=== PATIENT | male | born 1990 | race Caucasian/White ===

== ENCOUNTER 2017-10-07 13:25 | Inpatient (IN) | payer BC ==
[~2017-10-07] VITALS: Ht 188 cm; Wt 98.9 kg
--- NOTE | 2017-10-07 13:51 | PHYS DOC ---
Adult General Chief Complaint Chief Complaint: anxiety; wants rehap HPI HPI Patient is a 27-year-old male who presents with complaint of wanting rehabilitation. Patient indicates that he was clean from heroin for 40 days and he has been having a lot of anxiety because his ex-girlfriend has been messing with him. Patient denies any suicidal ideations but states that he has been having homicidal ideations regarding his ex-girlfriend, stating that he has been thinking about ending her. He denies any chest pain or shortness breath. He does complain of feeling very thirsty and states that he is probably not been drinking enough fluids recently. Review of Systems Review of Systems Constitutional: Denies fever or chills [] Respiratory: Denies cough or shortness of breath [] Cardiovascular: Denies chest pain[] GI: Denies abdominal pain, nausea, vomiting or diarrhea [] Musculoskeletal: Denies back pain or joint pain [] Psychiatric: Admits to homicidal ideations. A full 10 point review of systems has been reviewed and is otherwise negative. Current Medications Current Medications Current Medications Medications (Trade) Dose Ordered Sig/Yoshi Start Time Stop Time Status Last Admin Dose Admin Lorazepam (Ativan) 1 mg 1X ONCE 10/07/17 18:00 10/07/17 18:01 Sodium Chloride 1,000 ml @ 1,000 mls/hr Q1H 10/07/17 14:00 10/07/17 14:59 DC 10/07/17 15:03 1,000 MLS/HR Allergies Allergies Allergies Coded Allergies Type Severity Reaction Last Updated Verified tramadol Allergy Severe "TRIGGERS SEIZURES" 10/07/17 Yes Physical Exam Physical Exam Constitutional: Well developed, well nourished, no acute distress, non-toxic appearance. [] HENT: Normocephalic, atraumatic, bilateral external ears normal, oral mucosa is dry, no oral exudates, nose normal. [] Eyes: PERRLA, EOMI, conjunctiva normal, no discharge. [] Neck: Normal range of motion, no tenderness, supple, no stridor. [] Cardiovascular:Heart rate regular rhythm [] Lungs & Thorax: Bilateral breath sounds clear to auscultation [] Abdomen: Bowel sounds normal, soft, no tenderness. [] Skin: Warm, dry, no erythema, no rash. [] Extremities: No tenderness, no cyanosis, no clubbing, ROM intact, no edema. [] Neurologic: Alert and oriented X 3, normal motor function, normal sensory function, no focal deficits noted. [] Current Patient Data Vital Signs Vital Signs Date Time Temp Pulse Resp B/P (MAP) Pulse Ox O2 Delivery O2 Flow Rate FiO2 10/07/17 16:57 88 18 135/90 (105) 95 Room Air 10/07/17 13:30 98.7 98.7 Lab Values Laboratory Tests Test 10/07/17 13:50 10/07/17 14:24 White Blood Count 5.4 x10^3/uL (4.0-11.0) Red Blood Count 4.13 x10^6/uL (4.30-5.70) L Hemoglobin 13.1 g/dL (13.0-17.5) Hematocrit 37.2 % (39.0-53.0) L Mean Corpuscular Volume 90 fL (79-100) Mean Corpuscular Hemoglobin 32 pg (25-35) Mean Corpuscular Hemoglobin Concent 35 g/dL (31-37) Red Cell Distribution Width 12.9 % (11.5-14.5) Platelet Count 222 x10^3/uL (140-400) Neutrophils (%) (Auto) 66 % (31-73) Lymphocytes (%) (Auto) 15 % (24-48) L Monocytes (%) (Auto) 18 % (0-9) H Eosinophils (%) (Auto) 1 % (0-3) Basophils (%) (Auto) 1 % (0-3) Neutrophils # (Auto) 3.6 x10^3uL (1.8-7.7) Lymphocytes # (Auto) 0.8 x10^3/uL (1.0-4.8) L Monocytes # (Auto) 0.9 x10^3/uL (0.0-1.1) Eosinophils # (Auto) 0.0 x10^3/uL (0.0-0.7) Basophils # (Auto) 0.0 x10^3/uL (0.0-0.2) Sodium Level 139 mmol/L (136-145) Potassium Level 3.7 mmol/L (3.5-5.1) Chloride Level 104 mmol/L (98-107) Carbon Dioxide Level 28 mmol/L (21-32) Anion Gap 7 (6-14) Blood Urea Nitrogen 22 mg/dL (8-26) Creatinine 1.0 mg/dL (0.7-1.3) Estimated GFR (Cockcroft-Gault) 89.0 Glucose Level 76 mg/dL (70-99) Calcium Level 8.7 mg/dL (8.5-10.1) Magnesium Level 2.0 mg/dL (1.8-2.4) Total Bilirubin 0.5 mg/dL (0.2-1.0) Direct Bilirubin 0.2 mg/dL (0.0-0.2) Aspartate Amino Transferase (AST) 57 U/L (15-37) H Alanine Aminotransferase (ALT) 81 U/L (16-63) H Alkaline Phosphatase 59 U/L (46-116) Total Protein 7.5 g/dL (6.4-8.2) Albumin 3.7 g/dL (3.4-5.0) Ethyl Alcohol Level < 10 mg/dL (0-10) Urine Collection Type Unknown Urine Color Yellow Urine Clarity Clear Urine pH 5.5 Urine Specific [place] 1.025 Urine Protein Negative mg/dL (NEG-TRACE) Urine Glucose (UA) Negative mg/dL (NEG) Urine Ketones (Stick) Negative mg/dL (NEG) Urine Blood Negative (NEG) Urine Nitrite Negative (NEG) Urine Bilirubin Negative (NEG) Urine Urobilinogen Dipstick 0.2 mg/dL (0.2 mg/dL) Urine Leukocyte Esterase Negative (NEG) Urine RBC 1-2 /HPF (0-2) Urine WBC 1-4 /HPF (0-4) Urine Squamous Epithelial Cells Few /LPF Urine Bacteria 0 /HPF (0-FEW) Urine Mucus Mod /LPF Urine Opiates Screen Neg (NEG) Urine Methadone Screen Neg (NEG) Urine Barbiturates Neg (NEG) Urine Phencyclidine Screen Neg (NEG) Urine Amphetamine/Methamphetamine Pos (NEG) Urine Benzodiazepines Screen Pos (NEG) Urine Cocaine Screen Neg (NEG) Urine Cannabinoids Screen Neg (NEG) Urine Ethyl Alcohol Neg (NEG) Laboratory Tests 10/07/17 13:50 Laboratory Tests 10/07/17 13:50 EKG EKG [] Radiology/Procedures Radiology/Procedures [] Course & Med Decision Making Course & Med Decision Making Pertinent Labs and Imaging studies reviewed. (See chart for details) [] Dragon Disclaimer Dragon Disclaimer This electronic medical record was generated, in whole or in part, using a voice recognition dictation system. Departure Departure Impression: Primary Impression: Methamphetamine abuse Additional Impression: Homicidal ideation Disposition: ADMITTED INPATIENT Admitting Physician: Shoaib Anne Condition: STABLE Problem Qualifiers JESUSITA CALDERA Jr. DO Oct 07, 2017 13:51
[2017-10-07] MEDS ORDERED: IV NORMAL SALINE 1000ML BAG 1,000 ML IV SCH (14:00)
[2017-10-07 14:01] LABS: BASO % 1 % (0-3); EOS % 1 % (0-3); HEMATOCRIT 37.2 % (39.0-53.0); HEMOGLOBIN 13.1 g/dL (13.0-17.5); LYMPH # 0.8 x10^3/uL (1.0-4.8); LYMPH % 15 % (24-48); MEAN CORPUSCULAR HEMOGLOBIN 32 pg (25-35); MEAN CORPUSCULAR HGB CONC 35 g/dL (31-37); MEAN CORPUSCULAR VOLUME 90 fL (79-100); MONO # 0.9 x10^3/uL (0.0-1.1); MONO % 18 % (0-9); NEUT # 3.6 x10^3uL (1.8-7.7); NEUT % 66 % (31-73); PLATELET COUNT 222 x10^3/uL (140-400); RED BLOOD COUNT 4.13 x10^6/uL (4.30-5.70); RED CELL DISTRIBUTION WIDTH 12.9 % (11.5-14.5); WHITE BLOOD COUNT 5.4 x10^3/uL (4.0-11.0)
[2017-10-07 14:15] LABS: CALCIUM 8.7 mg/dL (8.5-10.1); POTASSIUM 3.7 mmol/L (3.5-5.1)
[2017-10-07 14:22] LABS: ALBUMIN 3.7 g/dL (3.4-5.0); DIRECT BILIRUBIN 0.2 mg/dL (0.0-0.2); TOTAL BILIRUBIN 0.5 mg/dL (0.2-1.0); TOTAL PROTEIN 7.5 g/dL (6.4-8.2)
[2017-10-07 14:39] LABS: BILIRUBIN,URINE NEGATIVE (NEG); CLARITY,URINE CLEAR; COLOR,URINE YELLOW; NITRITE,URINE NEGATIVE (NEG); PH,URINE 5.5; PROTEIN,URINE NEGATIVE (NEG-TRACE); UROBILINOGEN,URINE 0.2 mg/dL (0.2 mg/dL)
[2017-10-07 14:45] LABS: BARBITURATES NEG (NEG); BENZODIAZEPINES POS (NEG); CANNABINOIDS NEG (NEG); COCAINE NEG (NEG); METHADONE NEG (NEG); OPIATES NEG (NEG); PHENCYCLIDINE NEG (NEG)
[2017-10-07 14:47] LABS: AMPHETAMINE/METHAMPHETAMINE POS (NEG)
[2017-10-07 15:12] LABS: BACTERIA,URINE 0 /HPF (0-FEW); SQUAMOUS EPITHELIAL CELL,UR FEW /LPF
[2017-10-07] MEDS ORDERED: LORazepam 1 MG TABLET PO ONE ×2 (15:30→18:00)
[2017-10-07] MEDS ORDERED: LIDO:MAALOX 1:1 20 ML SINGLE DOSE. SWSW ONE (18:30)
--- NOTE | 2017-10-07 18:46 | PDOC1 ---
History and Physical Date of Admission Date of Admission DATE: 10/07/17 TIME: 18:46 Identification/Chief Complaint Chief Complaint CC presents with complaint of wanting rehabilitation. indicates that he was clean from heroin for 40 day Patient denies any suicidal ideations but states that he has been having homicidal ideations regarding his ex-girlfriend, HAS Been to [facility] in [facility] and [facility] Past Medical History GI: No pertinent hx Hepatobiliary: No pertinent hx Psych: Anxiety, Addictions Renal/: No pertinent hx Past Surgical History Past Surgical History: No pertinent history Family History Family History: Alcohol Abuse, High Cholestrol Family History: Parent Social History Smoke: No ALCOHOL: occassional Drugs: Marijuana, Crystal meth Current Problem List Problem List Problems Medical Problems: (1) Homicidal ideation Status: Acute (2) Methamphetamine abuse Status: Acute Current Medications Current Medications Current Medications Sodium Chloride 1,000 ml @ 1,000 mls/hr Q1H IV Last administered on 10/07/17at 15:03; Start 10/07/17 at 14:00; Stop 10/07/17 at 14:59; Status DC Lorazepam (Ativan) 1 mg 1X ONCE PO Last administered on 10/07/17at 15:11; Start 10/07/17 at 15:30; Stop 10/07/17 at 15:31; Status DC Lorazepam (Ativan) 1 mg 1X ONCE PO Last administered on 10/07/17at 18:21; Start 10/07/17 at 18:00; Stop 10/07/17 at 18:01; Status DC Multi-Ingredient Mouthwash/Gargle (Gi Cocktail) 20 ml 1X ONCE SWSW Last administered on 10/07/17at 18:24; Start 10/07/17 at 18:30; Stop 10/07/17 at 18:31 ; Status DC Allergies Allergies: Coded Allergies: tramadol (Verified Allergy, Severe, "TRIGGERS SEIZURES", 10/07/17) ROS Review of System Review of Systems Review of Systems Constitutional: Denies fever or chills [] Respiratory: Denies cough or shortness of breath [] Cardiovascular: Denies chest pain[] GI: Denies abdominal pain, nausea, vomiting or diarrhea [] Musculoskeletal: Denies back pain or joint pain [] Psychiatric: Admits to homicidal ideations. 14 point review of systems has been reviewed and is otherwise negative. General: No: Chills, Night Sweats, Fatigue, Malaise, Appetite, Other PSYCHOLOGICAL ROS: YES: Anxiety Gastrointestinal: No Nausea, No Vomiting, No Abdominal Pain, No Diarrhea, No Constipation, No Melena, No Hematochezia, No Other Neurological: Yes Confusion Skin: Yes Dry Skin Physical Exam Physical Exam Physical Exam Constitutional: Well developed, well nourished, no acute distress, non-toxic appearance. [] HENT: Normocephalic, atraumatic, bilateral external ears normal, oral mucosa is dry, no oral exudates, nose normal. [] Eyes: PERRLA, EOMI, conjunctiva normal, no discharge. [] Neck: Normal range of motion, no tenderness, supple, no stridor. [] Cardiovascular:Heart rate regular rhythm [] Lungs & Thorax: Bilateral breath sounds clear to auscultation [] Abdomen: Bowel sounds normal, soft, no tenderness. [] Skin: Warm, dry, no erythema, no rash. [] Extremities: No tenderness, no cyanosis, no clubbing, ROM intact, no edema. [] Neurologic: Alert and oriented X 3, seems under influence of a substance , normal motor function, normal sensory function, no focal deficits noted. [] General: Oriented X3, Cooperative, mild distress HEENT: PERRLA, EOMI, Mucous membr. moist/pink Lungs: Clear to auscultation, Normal air movement Heart: S1S2 Breasts: Not examined Abdomen: Soft Extremities: No cyanosis Neuro: Cranial nerves 3-12 NL Vitals Vitals Vital Signs Date Time Temp Pulse Resp B/P (MAP) Pulse Ox O2 Delivery O2 Flow Rate FiO2 10/07/17 16:57 88 18 135/90 (105) 95 Room Air 10/07/17 13:30 98.7 98.7 Labs Labs Laboratory Tests Test 10/07/17 13:50 10/07/17 14:24 White Blood Count 5.4 x10^3/uL (4.0-11.0) Red Blood Count 4.13 x10^6/uL (4.30-5.70) Hemoglobin 13.1 g/dL (13.0-17.5) Hematocrit 37.2 % (39.0-53.0) Mean Corpuscular Volume 90 fL (79-100) Mean Corpuscular Hemoglobin 32 pg (25-35) Mean Corpuscular Hemoglobin Concent 35 g/dL (31-37) Red Cell Distribution Width 12.9 % (11.5-14.5) Platelet Count 222 x10^3/uL (140-400) Neutrophils (%) (Auto) 66 % (31-73) Lymphocytes (%) (Auto) 15 % (24-48) Monocytes (%) (Auto) 18 % (0-9) Eosinophils (%) (Auto) 1 % (0-3) Basophils (%) (Auto) 1 % (0-3) Neutrophils # (Auto) 3.6 x10^3uL (1.8-7.7) Lymphocytes # (Auto) 0.8 x10^3/uL (1.0-4.8) Monocytes # (Auto) 0.9 x10^3/uL (0.0-1.1) Eosinophils # (Auto) 0.0 x10^3/uL (0.0-0.7) Basophils # (Auto) 0.0 x10^3/uL (0.0-0.2) Sodium Level 139 mmol/L (136-145) Potassium Level 3.7 mmol/L (3.5-5.1) Chloride Level 104 mmol/L (98-107) Carbon Dioxide Level 28 mmol/L (21-32) Anion Gap 7 (6-14) Blood Urea Nitrogen 22 mg/dL (8-26) Creatinine 1.0 mg/dL (0.7-1.3) Estimated GFR (Cockcroft-Gault) 89.0 Glucose Level 76 mg/dL (70-99) Calcium Level 8.7 mg/dL (8.5-10.1) Magnesium Level 2.0 mg/dL (1.8-2.4) Total Bilirubin 0.5 mg/dL (0.2-1.0) Direct Bilirubin 0.2 mg/dL (0.0-0.2) Aspartate Amino Transf (AST/SGOT) 57 U/L (15-37) Alanine Aminotransferase (ALT/SGPT) 81 U/L (16-63) Alkaline Phosphatase 59 U/L (46-116) Total Protein 7.5 g/dL (6.4-8.2) Albumin 3.7 g/dL (3.4-5.0) Ethyl Alcohol Level < 10 mg/dL (0-10) Urine Collection Type Unknown Urine Color Yellow Urine Clarity Clear Urine pH 5.5 Urine Specific [place] 1.025 Urine Protein Negative mg/dL (NEG-TRACE) Urine Glucose (UA) Negative mg/dL (NEG) Urine Ketones (Stick) Negative mg/dL (NEG) Urine Blood Negative (NEG) Urine Nitrite Negative (NEG) Urine Bilirubin Negative (NEG) Urine Urobilinogen Dipstick 0.2 mg/dL (0.2 mg/dL) Urine Leukocyte Esterase Negative (NEG) Urine RBC 1-2 /HPF (0-2) Urine WBC 1-4 /HPF (0-4) Urine Squamous Epithelial Cells Few /LPF Urine Bacteria 0 /HPF (0-FEW) Urine Mucus Mod /LPF Urine Opiates Screen Neg (NEG) Urine Methadone Screen Neg (NEG) Urine Barbiturates Neg (NEG) Urine Phencyclidine Screen Neg (NEG) Urine Amphetamine/Methamphetamine Pos (NEG) Urine Benzodiazepines Screen Pos (NEG) Urine Cocaine Screen Neg (NEG) Urine Cannabinoids Screen Neg (NEG) Urine Ethyl Alcohol Neg (NEG) Laboratory Tests Test 10/07/17 13:50 10/07/17 14:24 White Blood Count 5.4 x10^3/uL (4.0-11.0) Red Blood Count 4.13 x10^6/uL (4.30-5.70) Hemoglobin 13.1 g/dL (13.0-17.5) Hematocrit 37.2 % (39.0-53.0) Mean Corpuscular Volume 90 fL (79-100) Mean Corpuscular Hemoglobin 32 pg (25-35) Mean Corpuscular Hemoglobin Concent 35 g/dL (31-37) Red Cell Distribution Width 12.9 % (11.5-14.5) Platelet Count 222 x10^3/uL (140-400) Neutrophils (%) (Auto) 66 % (31-73) Lymphocytes (%) (Auto) 15 % (24-48) Monocytes (%) (Auto) 18 % (0-9) Eosinophils (%) (Auto) 1 % (0-3) Basophils (%) (Auto) 1 % (0-3) Neutrophils # (Auto) 3.6 x10^3uL (1.8-7.7) Lymphocytes # (Auto) 0.8 x10^3/uL (1.0-4.8) Monocytes # (Auto) 0.9 x10^3/uL (0.0-1.1) Eosinophils # (Auto) 0.0 x10^3/uL (0.0-0.7) Basophils # (Auto) 0.0 x10^3/uL (0.0-0.2) Sodium Level 139 mmol/L (136-145) Potassium Level 3.7 mmol/L (3.5-5.1) Chloride Level 104 mmol/L (98-107) Carbon Dioxide Level 28 mmol/L (21-32) Anion Gap 7 (6-14) Blood Urea Nitrogen 22 mg/dL (8-26) Creatinine 1.0 mg/dL (0.7-1.3) Estimated GFR (Cockcroft-Gault) 89.0 Glucose Level 76 mg/dL (70-99) Calcium Level 8.7 mg/dL (8.5-10.1) Magnesium Level 2.0 mg/dL (1.8-2.4) Total Bilirubin 0.5 mg/dL (0.2-1.0) Direct Bilirubin 0.2 mg/dL (0.0-0.2) Aspartate Amino Transf (AST/SGOT) 57 U/L (15-37) Alanine Aminotransferase (ALT/SGPT) 81 U/L (16-63) Alkaline Phosphatase 59 U/L (46-116) Total Protein 7.5 g/dL (6.4-8.2) Albumin 3.7 g/dL (3.4-5.0) Ethyl Alcohol Level < 10 mg/dL (0-10) Urine Collection Type Unknown Urine Color Yellow Urine Clarity Clear Urine pH 5.5 Urine Specific [place] 1.025 Urine Protein Negative mg/dL (NEG-TRACE) Urine Glucose (UA) Negative mg/dL (NEG) Urine Ketones (Stick) Negative mg/dL (NEG) Urine Blood Negative (NEG) Urine Nitrite Negative (NEG) Urine Bilirubin Negative (NEG) Urine Urobilinogen Dipstick 0.2 mg/dL (0.2 mg/dL) Urine Leukocyte Esterase Negative (NEG) Urine RBC 1-2 /HPF (0-2) Urine WBC 1-4 /HPF (0-4) Urine Squamous Epithelial Cells Few /LPF Urine Bacteria 0 /HPF (0-FEW) Urine Mucus Mod /LPF Urine Opiates Screen Neg (NEG) Urine Methadone Screen Neg (NEG) Urine Barbiturates Neg (NEG) Urine Phencyclidine Screen Neg (NEG) Urine Amphetamine/Methamphetamine Pos (NEG) Urine Benzodiazepines Screen Pos (NEG) Urine Cocaine Screen Neg (NEG) Urine Cannabinoids Screen Neg (NEG) Urine Ethyl Alcohol Neg (NEG) VTE Prophylaxis Ordered VTE Prophylaxis Devices: Yes VTE Pharmacological Prophylaxi: Yes Assessment/Plan Assessment/Plan impression 1. polysubstance abuse 2. Meth abuse 3 Toxic encephalopathy 4. Risk to self and others 5. homicidal ideations plan 1. ADMIT 2. Withdrawal precautions 3. sitter 4. 48 hr hold 5. rehab needed 6. iv ativan 1-2 mg q 6 hrs prn severe anxiety 7. psych hold, consult 8. lovenox 40mg sq dvt prophylaxis 9. banana bag LUCRETIA PALMA MD Oct 07, 2017 18:46
[2017-10-07] MEDS ORDERED: MULTIVIT INFUSN,ADULT 4,VIT K 10 ML, THIAMINE 100 MG, FOLIC ACID 1 MG in IV NORMAL SALI... IV ONE (19:00)
[2017-10-07] MEDS ORDERED: ENOXAPARIN 40 MG/0.4 ML SYRINGE. SQ ONE (19:00)
[2017-10-07] MEDS ORDERED: HALOPERIDOL LACTATE 5 MG/ML VIAL. ONE (19:52)
[2017-10-07] MEDS ORDERED: OLANZapine IM 10 MG VIAL. IM ONE (20:15)
[2017-10-07] MEDS ORDERED: HALOPERIDOL LACTATE 5 MG/ML VIAL. IM ONE (20:15)
[2017-10-07] MEDS ORDERED: ZIPRASIDONE IM 20 MG VIAL. IM ONE (20:30)
[2017-10-07] MEDS ORDERED: ZIPRASIDONE IM 20 MG VIAL. IM PRN ×2 (22:15→23:00)
[2017-10-07] MEDS ORDERED: MIDAZOLAM HCL/PF 5 MG/5 ML VIAL. IM PRN ×2 (22:30→23:00)
[2017-10-07] MEDS ORDERED: ZOLPIDEM 5 MG TABLET. PO PRN (22:45)
[2017-10-08 07:00] VITALS: BP 115/40
[2017-10-08] MEDS ORDERED: GABA800T2 PO (10:01)
[2017-10-08] MEDS ORDERED: CLON2TAB9 PO (10:01)
[2017-10-08] MEDS ORDERED: BUPR1FIL5 SL (10:02)
--- NOTE | 2017-10-08 10:33 | PDOC ---
PROGRESS NOTES History of Present Illness History of Present Illness Assessment/Plan Assessment/Plan impression 1. polysubstance abuse 2. Meth abuse 3 Toxic encephalopathy 4. Risk to self and others 5. homicidal ideations plan 1. ADMIT 2. Withdrawal precautions 3. sitter 4. 48 hr hold 5. rehab needed, refused 6. iv ativan 1-2 mg q 6 hrs prn severe anxiety 7. psych hold, consult 8. lovenox 40mg sq dvt prophylaxis 9. banana bag left ama today d/c planning 38 min Vitals Vitals Vital Signs Date Time Temp Pulse Resp B/P (MAP) Pulse Ox O2 Delivery O2 Flow Rate FiO2 10/08/17 08:00 Room Air 10/08/17 07:00 101.0 102 18 115/40 (65) 92 101.0 Physical Exam General: Oriented X3, Cooperative, mild distress Abdomen: Soft Extremities: No cyanosis Labs LABS Laboratory Tests Test 10/07/17 13:50 10/07/17 14:24 White Blood Count 5.4 x10^3/uL (4.0-11.0) Red Blood Count 4.13 x10^6/uL (4.30-5.70) Hemoglobin 13.1 g/dL (13.0-17.5) Hematocrit 37.2 % (39.0-53.0) Mean Corpuscular Volume 90 fL (79-100) Mean Corpuscular Hemoglobin 32 pg (25-35) Mean Corpuscular Hemoglobin Concent 35 g/dL (31-37) Red Cell Distribution Width 12.9 % (11.5-14.5) Platelet Count 222 x10^3/uL (140-400) Neutrophils (%) (Auto) 66 % (31-73) Lymphocytes (%) (Auto) 15 % (24-48) Monocytes (%) (Auto) 18 % (0-9) Eosinophils (%) (Auto) 1 % (0-3) Basophils (%) (Auto) 1 % (0-3) Neutrophils # (Auto) 3.6 x10^3uL (1.8-7.7) Lymphocytes # (Auto) 0.8 x10^3/uL (1.0-4.8) Monocytes # (Auto) 0.9 x10^3/uL (0.0-1.1) Eosinophils # (Auto) 0.0 x10^3/uL (0.0-0.7) Basophils # (Auto) 0.0 x10^3/uL (0.0-0.2) Sodium Level 139 mmol/L (136-145) Potassium Level 3.7 mmol/L (3.5-5.1) Chloride Level 104 mmol/L (98-107) Carbon Dioxide Level 28 mmol/L (21-32) Anion Gap 7 (6-14) Blood Urea Nitrogen 22 mg/dL (8-26) Creatinine 1.0 mg/dL (0.7-1.3) Estimated GFR (Cockcroft-Gault) 89.0 Glucose Level 76 mg/dL (70-99) Calcium Level 8.7 mg/dL (8.5-10.1) Magnesium Level 2.0 mg/dL (1.8-2.4) Total Bilirubin 0.5 mg/dL (0.2-1.0) Direct Bilirubin 0.2 mg/dL (0.0-0.2) Aspartate Amino Transf (AST/SGOT) 57 U/L (15-37) Alanine Aminotransferase (ALT/SGPT) 81 U/L (16-63) Alkaline Phosphatase 59 U/L (46-116) Total Protein 7.5 g/dL (6.4-8.2) Albumin 3.7 g/dL (3.4-5.0) Ethyl Alcohol Level < 10 mg/dL (0-10) Urine Collection Type Unknown Urine Color Yellow Urine Clarity Clear Urine pH 5.5 Urine Specific [place] 1.025 Urine Protein Negative mg/dL (NEG-TRACE) Urine Glucose (UA) Negative mg/dL (NEG) Urine Ketones (Stick) Negative mg/dL (NEG) Urine Blood Negative (NEG) Urine Nitrite Negative (NEG) Urine Bilirubin Negative (NEG) Urine Urobilinogen Dipstick 0.2 mg/dL (0.2 mg/dL) Urine Leukocyte Esterase Negative (NEG) Urine RBC 1-2 /HPF (0-2) Urine WBC 1-4 /HPF (0-4) Urine Squamous Epithelial Cells Few /LPF Urine Bacteria 0 /HPF (0-FEW) Urine Mucus Mod /LPF Urine Opiates Screen Neg (NEG) Urine Methadone Screen Neg (NEG) Urine Barbiturates Neg (NEG) Urine Phencyclidine Screen Neg (NEG) Urine Amphetamine/Methamphetamine Pos (NEG) Urine Benzodiazepines Screen Pos (NEG) Urine Cocaine Screen Neg (NEG) Urine Cannabinoids Screen Neg (NEG) Urine Ethyl Alcohol Neg (NEG) Assessment and Plan Assessmemt and Plan Problems Medical Problems: (1) Homicidal ideation Status: Acute (2) Methamphetamine abuse Status: Acute Comment Review of Relevant I have reviewed the following items ambar (where applicable) has been applied. Labs Laboratory Tests Test 10/07/17 13:50 10/07/17 14:24 White Blood Count 5.4 x10^3/uL (4.0-11.0) Red Blood Count 4.13 x10^6/uL (4.30-5.70) Hemoglobin 13.1 g/dL (13.0-17.5) Hematocrit 37.2 % (39.0-53.0) Mean Corpuscular Volume 90 fL (79-100) Mean Corpuscular Hemoglobin 32 pg (25-35) Mean Corpuscular Hemoglobin Concent 35 g/dL (31-37) Red Cell Distribution Width 12.9 % (11.5-14.5) Platelet Count 222 x10^3/uL (140-400) Neutrophils (%) (Auto) 66 % (31-73) Lymphocytes (%) (Auto) 15 % (24-48) Monocytes (%) (Auto) 18 % (0-9) Eosinophils (%) (Auto) 1 % (0-3) Basophils (%) (Auto) 1 % (0-3) Neutrophils # (Auto) 3.6 x10^3uL (1.8-7.7) Lymphocytes # (Auto) 0.8 x10^3/uL (1.0-4.8) Monocytes # (Auto) 0.9 x10^3/uL (0.0-1.1) Eosinophils # (Auto) 0.0 x10^3/uL (0.0-0.7) Basophils # (Auto) 0.0 x10^3/uL (0.0-0.2) Sodium Level 139 mmol/L (136-145) Potassium Level 3.7 mmol/L (3.5-5.1) Chloride Level 104 mmol/L (98-107) Carbon Dioxide Level 28 mmol/L (21-32) Anion Gap 7 (6-14) Blood Urea Nitrogen 22 mg/dL (8-26) Creatinine 1.0 mg/dL (0.7-1.3) Estimated GFR (Cockcroft-Gault) 89.0 Glucose Level 76 mg/dL (70-99) Calcium Level 8.7 mg/dL (8.5-10.1) Magnesium Level 2.0 mg/dL (1.8-2.4) Total Bilirubin 0.5 mg/dL (0.2-1.0) Direct Bilirubin 0.2 mg/dL (0.0-0.2) Aspartate Amino Transf (AST/SGOT) 57 U/L (15-37) Alanine Aminotransferase (ALT/SGPT) 81 U/L (16-63) Alkaline Phosphatase 59 U/L (46-116) Total Protein 7.5 g/dL (6.4-8.2) Albumin 3.7 g/dL (3.4-5.0) Ethyl Alcohol Level < 10 mg/dL (0-10) Urine Collection Type Unknown Urine Color Yellow Urine Clarity Clear Urine pH 5.5 Urine Specific [place] 1.025 Urine Protein Negative mg/dL (NEG-TRACE) Urine Glucose (UA) Negative mg/dL (NEG) Urine Ketones (Stick) Negative mg/dL (NEG) Urine Blood Negative (NEG) Urine Nitrite Negative (NEG) Urine Bilirubin Negative (NEG) Urine Urobilinogen Dipstick 0.2 mg/dL (0.2 mg/dL) Urine Leukocyte Esterase Negative (NEG) Urine RBC 1-2 /HPF (0-2) Urine WBC 1-4 /HPF (0-4) Urine Squamous Epithelial Cells Few /LPF Urine Bacteria 0 /HPF (0-FEW) Urine Mucus Mod /LPF Urine Opiates Screen Neg (NEG) Urine Methadone Screen Neg (NEG) Urine Barbiturates Neg (NEG) Urine Phencyclidine Screen Neg (NEG) Urine Amphetamine/Methamphetamine Pos (NEG) Urine Benzodiazepines Screen Pos (NEG) Urine Cocaine Screen Neg (NEG) Urine Cannabinoids Screen Neg (NEG) Urine Ethyl Alcohol Neg (NEG) Laboratory Tests Test 10/07/17 13:50 10/07/17 14:24 White Blood Count 5.4 x10^3/uL (4.0-11.0) Red Blood Count 4.13 x10^6/uL (4.30-5.70) Hemoglobin 13.1 g/dL (13.0-17.5) Hematocrit 37.2 % (39.0-53.0) Mean Corpuscular Volume 90 fL (79-100) Mean Corpuscular Hemoglobin 32 pg (25-35) Mean Corpuscular Hemoglobin Concent 35 g/dL (31-37) Red Cell Distribution Width 12.9 % (11.5-14.5) Platelet Count 222 x10^3/uL (140-400) Neutrophils (%) (Auto) 66 % (31-73) Lymphocytes (%) (Auto) 15 % (24-48) Monocytes (%) (Auto) 18 % (0-9) Eosinophils (%) (Auto) 1 % (0-3) Basophils (%) (Auto) 1 % (0-3) Neutrophils # (Auto) 3.6 x10^3uL (1.8-7.7) Lymphocytes # (Auto) 0.8 x10^3/uL (1.0-4.8) Monocytes # (Auto) 0.9 x10^3/uL (0.0-1.1) Eosinophils # (Auto) 0.0 x10^3/uL (0.0-0.7) Basophils # (Auto) 0.0 x10^3/uL (0.0-0.2) Sodium Level 139 mmol/L (136-145) Potassium Level 3.7 mmol/L (3.5-5.1) Chloride Level 104 mmol/L (98-107) Carbon Dioxide Level 28 mmol/L (21-32) Anion Gap 7 (6-14) Blood Urea Nitrogen 22 mg/dL (8-26) Creatinine 1.0 mg/dL (0.7-1.3) Estimated GFR (Cockcroft-Gault) 89.0 Glucose Level 76 mg/dL (70-99) Calcium Level 8.7 mg/dL (8.5-10.1) Magnesium Level 2.0 mg/dL (1.8-2.4) Total Bilirubin 0.5 mg/dL (0.2-1.0) Direct Bilirubin 0.2 mg/dL (0.0-0.2) Aspartate Amino Transf (AST/SGOT) 57 U/L (15-37) Alanine Aminotransferase (ALT/SGPT) 81 U/L (16-63) Alkaline Phosphatase 59 U/L (46-116) Total Protein 7.5 g/dL (6.4-8.2) Albumin 3.7 g/dL (3.4-5.0) Ethyl Alcohol Level < 10 mg/dL (0-10) Urine Collection Type Unknown Urine Color Yellow Urine Clarity Clear Urine pH 5.5 Urine Specific [place] 1.025 Urine Protein Negative mg/dL (NEG-TRACE) Urine Glucose (UA) Negative mg/dL (NEG) Urine Ketones (Stick) Negative mg/dL (NEG) Urine Blood Negative (NEG) Urine Nitrite Negative (NEG) Urine Bilirubin Negative (NEG) Urine Urobilinogen Dipstick 0.2 mg/dL (0.2 mg/dL) Urine Leukocyte Esterase Negative (NEG) Urine RBC 1-2 /HPF (0-2) Urine WBC 1-4 /HPF (0-4) Urine Squamous Epithelial Cells Few /LPF Urine Bacteria 0 /HPF (0-FEW) Urine Mucus Mod /LPF Urine Opiates Screen Neg (NEG) Urine Methadone Screen Neg (NEG) Urine Barbiturates Neg (NEG) Urine Phencyclidine Screen Neg (NEG) Urine Amphetamine/Methamphetamine Pos (NEG) Urine Benzodiazepines Screen Pos (NEG) Urine Cocaine Screen Neg (NEG) Urine Cannabinoids Screen Neg (NEG) Urine Ethyl Alcohol Neg (NEG) Medications Current Medications Sodium Chloride 1,000 ml @ 1,000 mls/hr Q1H IV Last administered on 10/07/17at 15:03; Start 10/07/17 at 14:00; Stop 10/07/17 at 14:59; Status DC Lorazepam (Ativan) 1 mg 1X ONCE PO Last administered on 10/07/17at 15:11; Start 10/07/17 at 15:30; Stop 10/07/17 at 15:31; Status DC Lorazepam (Ativan) 1 mg 1X ONCE PO Last administered on 10/07/17at 18:21; Start 10/07/17 at 18:00; Stop 10/07/17 at 18:01; Status DC Multi-Ingredient Mouthwash/Gargle (Gi Cocktail) 20 ml 1X ONCE SWSW Last administered on 10/07/17at 18:24; Start 10/07/17 at 18:30; Stop 10/07/17 at 18:31 ; Status DC Lorazepam (Ativan) 2 mg PRN Q4HRS PRN IV ANXIETY / AGITATION Last administered on 10/08/17at 07:09; Start 10/07/17 at 19:00 Enoxaparin Sodium (Lovenox 40mg Syringe) 40 mg 1X ONCE SQ Last administered on 10/07/17at 19:09; Start 10/07/17 at 19:00; Stop 10/07/17 at 19:01; Status DC Multivitamins 10 ml/Thiamine HCl 100 mg/Folic Acid 1 mg/Sodium Chloride 1,011.2 ml @ 1,000.088 mls/hr 1X ONCE IV ; Start 10/07/17 at 19:00; Stop 10/07/17 at 20:00; Status DC Haloperidol Lactate (Haldol Inj) 5 mg STK-MED ONCE .ROUTE ; Start 10/07/17 at 19 :52; Stop 10/07/17 at 19:53; Status DC Haloperidol Lactate (Haldol Inj) 5 mg 1X ONCE IM ; Start 10/07/17 at 20:15; Stop 10/07/17 at 20:16; Status DC Lorazepam (Ativan) 2 mg 1X ONCE IM ; Start 10/07/17 at 20:15; Stop 10/07/17 at 20:20; Status DC Olanzapine (ZyPREXA IM) 20 mg 1X ONCE IM ; Start 10/07/17 at 20:15; Stop at 20:16; Status DC Ziprasidone (Geodon Im) 20 mg 1X ONCE IM Last administered on 10/07/17at 20:10 ; Start 10/07/17 at 20:30; Stop 10/07/17 at 20:31; Status DC Lorazepam (Ativan) 2 mg 1X ONCE IV Last administered on 10/07/17at 19:58; Start 10/07/17 at 20:30; Stop 10/07/17 at 20:31; Status DC Ziprasidone (Geodon Im) 10 mg PRN Q4HRS PRN IM ANXIETY / AGITATION; Start 10/07 at 22:15; Stop 10/07/17 at 22:48; Status DC Midazolam HCl (Versed) 4 mg PRN Q4HRS PRN IM ANXIETY / AGITATION; Start at 22:30; Stop 10/07/17 at 22:48; Status DC Zolpidem Tartrate (Ambien) 5 mg PRN 1X PRN PO INSOMNIA, MAY REPEAT X1; Start at 22:45; Stop 10/08/17 at 22:44 Midazolam HCl (Versed) 4 mg 1X PRN PRN IM ANXIETY / AGITATION; Start 10/07/17 at 23:00; Stop 10/08/17 at 22:59 Ziprasidone (Geodon Im) 10 mg 1X PRN PRN IM ANXIETY / AGITATION; Start at 23:00; Stop 10/08/17 at 22:59 Gabapentin (Neurontin) 600 mg QID PO Last administered on 10/08/17at 10:29; Start 10/08/17 at 11:00 Active Scripts Active Reported Suboxone 8 Mg-2 Mg Sl Film (Buprenorphine Hcl/Naloxone Hcl) 1 Each Film 1 Strip SL DAILY Clonazepam 2 Mg Tablet 2 Mg PO TID Gabapentin 800 Mg Tablet 900 Mg PO QID Vitals/I & O Vital Sign - Last 24 Hours 10/07/17 10/07/17 10/07/17 10/07/17 13:27 13:30 13:57 14:27 Temp 98.7 98.7 Pulse 84 70 78 78 Resp 16 13 28 B/P (MAP) 121/57 (78) 143/69 (93) 116/56 (76) 145/75 (98) Pulse Ox 96 97 93 97 O2 Delivery Room Air Room Air Room Air Room Air 10/07/17 10/07/17 10/07/17 10/07/17 14:57 15:57 16:57 19:11 Pulse 82 94 88 80 Resp 27 23 18 15 B/P (MAP) 138/68 (91) 145/86 (105) 135/90 (105) 130/63 (85) Pulse Ox 96 95 95 97 O2 Delivery Room Air Room Air Room Air Room Air 10/08/17 10/08/17 10/08/17 03:00 07:00 08:00 Temp 101.0 101.0 Pulse 102 Resp 18 B/P (MAP) 115/40 (65) Pulse Ox 92 O2 Delivery Room Air Room Air Room Air Intake and Output 10/07/17 10/07/17 10/08/17 15:00 23:00 07:00 Intake Total 1000 ml 0 ml Balance 1000 ml 0 ml LUCRETIA PALMA MD Oct 08, 2017 10:33
[2017-10-08] MEDS ORDERED: GABA600T2 PO (10:40)
[2017-10-08] MEDS ORDERED: GABAPENTIN 300 MG CAPSULE. PO SCH (11:00)
--- NOTE | 2017-10-08 14:12 | PDOC3 ---
Discharge Summary Date of Admission: Oct 07, 2017 Date of Discharge: Oct 08, 2017 Follow-Up: 1-2 days Admitting Diagnosis comment: discharge diagnosis======== Assessment/Plan impression 1. polysubstance abuse 2. Meth abuse 3 Toxic encephalopathy 4. Risk to self and others 5. homicidal ideations plan 1. ADMIT 2. Withdrawal precautions 3. sitter 4. 48 hr hold 5. rehab needed, refused 6. iv ativan 1-2 mg q 6 hrs prn severe anxiety 7. psych hold, consult 8. lovenox 40mg sq dvt prophylaxis 9. banana bag left ama today d/c planning 38 min Vitals Vitals Vital Signs Date Time Temp Pulse Resp B/P (MAP) Pulse Ox O2 Delivery O2 Flow Rate FiO2 10/08/17 08:00 Room Air 10/08/17 07:00 101.0 102 18 115/40 (65) 92 101.0 Physical Exam General: Oriented X3, Cooperative, mild distress Abdomen: Soft Extremities: No cyanosis FINAL DIAGNOSIS Problems Medical Problems: (1) Homicidal ideation Status: Acute (2) Methamphetamine abuse Status: Acute Brief Hospital Course Mr. Olivares is a 27 old [sex] who presented with [ ] CONDITION AT DISCHARGE: Comment (left ama) Discharge Medications Current Medications Sodium Chloride 1,000 ml @ 1,000 mls/hr Q1H IV Last administered on 10/07/17at 15:03; Start 10/07/17 at 14:00; Stop 10/07/17 at 14:59; Status DC Lorazepam (Ativan) 1 mg 1X ONCE PO Last administered on 10/07/17at 15:11; Start 10/07/17 at 15:30; Stop 10/07/17 at 15:31; Status DC Lorazepam (Ativan) 1 mg 1X ONCE PO Last administered on 10/07/17at 18:21; Start 10/07/17 at 18:00; Stop 10/07/17 at 18:01; Status DC Multi-Ingredient Mouthwash/Gargle (Gi Cocktail) 20 ml 1X ONCE SWSW Last administered on 10/07/17at 18:24; Start 10/07/17 at 18:30; Stop 10/07/17 at 18:31 ; Status DC Lorazepam (Ativan) 2 mg PRN Q4HRS PRN IV ANXIETY / AGITATION Last administered on 10/08/17at 07:09; Start 10/07/17 at 19:00; Stop 10/08/17 at 11:31; Status DC Enoxaparin Sodium (Lovenox 40mg Syringe) 40 mg 1X ONCE SQ Last administered on 10/07/17at 19:09; Start 10/07/17 at 19:00; Stop 10/07/17 at 19:01; Status DC Multivitamins 10 ml/Thiamine HCl 100 mg/Folic Acid 1 mg/Sodium Chloride 1,011.2 ml @ 1,000.088 mls/hr 1X ONCE IV ; Start 10/07/17 at 19:00; Stop 10/07/17 at 20:00; Status DC Haloperidol Lactate (Haldol Inj) 5 mg STK-MED ONCE .ROUTE ; Start 10/07/17 at 19 :52; Stop 10/07/17 at 19:53; Status DC Haloperidol Lactate (Haldol Inj) 5 mg 1X ONCE IM ; Start 10/07/17 at 20:15; Stop 10/07/17 at 20:16; Status DC Lorazepam (Ativan) 2 mg 1X ONCE IM ; Start 10/07/17 at 20:15; Stop 10/07/17 at 20:20; Status DC Olanzapine (ZyPREXA IM) 20 mg 1X ONCE IM ; Start 10/07/17 at 20:15; Stop at 20:16; Status DC Ziprasidone (Geodon Im) 20 mg 1X ONCE IM Last administered on 10/07/17at 20:10 ; Start 10/07/17 at 20:30; Stop 10/07/17 at 20:31; Status DC Lorazepam (Ativan) 2 mg 1X ONCE IV Last administered on 10/07/17at 19:58; Start 10/07/17 at 20:30; Stop 10/07/17 at 20:31; Status DC Ziprasidone (Geodon Im) 10 mg PRN Q4HRS PRN IM ANXIETY / AGITATION; Start 10/07 at 22:15; Stop 10/07/17 at 22:48; Status DC Midazolam HCl (Versed) 4 mg PRN Q4HRS PRN IM ANXIETY / AGITATION; Start at 22:30; Stop 10/07/17 at 22:48; Status DC Zolpidem Tartrate (Ambien) 5 mg PRN 1X PRN PO INSOMNIA, MAY REPEAT X1; Start at 22:45; Stop 10/08/17 at 11:31; Status DC Midazolam HCl (Versed) 4 mg 1X PRN PRN IM ANXIETY / AGITATION; Start 10/07/17 at 23:00; Stop 10/08/17 at 11:31; Status DC Ziprasidone (Geodon Im) 10 mg 1X PRN PRN IM ANXIETY / AGITATION; Start at 23:00; Stop 10/08/17 at 11:31; Status DC Gabapentin (Neurontin) 600 mg QID PO Last administered on 10/08/17at 10:29; Start 10/08/17 at 11:00; Stop 10/08/17 at 11:31; Status DC Active Scripts Active Reported Gabapentin 600 Mg Tablet 600 Mg PO QID Suboxone 8 Mg-2 Mg Sl Film (Buprenorphine Hcl/Naloxone Hcl) 1 Each Film 1 Strip SL DAILY Clonazepam 2 Mg Tablet 2 Mg PO TID Vital Signs Vital Signs Date Time Temp Pulse Resp B/P (MAP) Pulse Ox O2 Delivery O2 Flow Rate FiO2 10/08/17 08:00 Room Air 10/08/17 07:00 101.0 102 18 115/40 (65) 92 101.0 Labs Laboratory Tests Test 10/07/17 13:50 10/07/17 14:24 White Blood Count 5.4 x10^3/uL (4.0-11.0) Red Blood Count 4.13 x10^6/uL (4.30-5.70) Hemoglobin 13.1 g/dL (13.0-17.5) Hematocrit 37.2 % (39.0-53.0) Mean Corpuscular Volume 90 fL (79-100) Mean Corpuscular Hemoglobin 32 pg (25-35) Mean Corpuscular Hemoglobin Concent 35 g/dL (31-37) Red Cell Distribution Width 12.9 % (11.5-14.5) Platelet Count 222 x10^3/uL (140-400) Neutrophils (%) (Auto) 66 % (31-73) Lymphocytes (%) (Auto) 15 % (24-48) Monocytes (%) (Auto) 18 % (0-9) Eosinophils (%) (Auto) 1 % (0-3) Basophils (%) (Auto) 1 % (0-3) Neutrophils # (Auto) 3.6 x10^3uL (1.8-7.7) Lymphocytes # (Auto) 0.8 x10^3/uL (1.0-4.8) Monocytes # (Auto) 0.9 x10^3/uL (0.0-1.1) Eosinophils # (Auto) 0.0 x10^3/uL (0.0-0.7) Basophils # (Auto) 0.0 x10^3/uL (0.0-0.2) Sodium Level 139 mmol/L (136-145) Potassium Level 3.7 mmol/L (3.5-5.1) Chloride Level 104 mmol/L (98-107) Carbon Dioxide Level 28 mmol/L (21-32) Anion Gap 7 (6-14) Blood Urea Nitrogen 22 mg/dL (8-26) Creatinine 1.0 mg/dL (0.7-1.3) Estimated GFR (Cockcroft-Gault) 89.0 Glucose Level 76 mg/dL (70-99) Calcium Level 8.7 mg/dL (8.5-10.1) Magnesium Level 2.0 mg/dL (1.8-2.4) Total Bilirubin 0.5 mg/dL (0.2-1.0) Direct Bilirubin 0.2 mg/dL (0.0-0.2) Aspartate Amino Transf (AST/SGOT) 57 U/L (15-37) Alanine Aminotransferase (ALT/SGPT) 81 U/L (16-63) Alkaline Phosphatase 59 U/L (46-116) Total Protein 7.5 g/dL (6.4-8.2) Albumin 3.7 g/dL (3.4-5.0) Ethyl Alcohol Level < 10 mg/dL (0-10) Urine Collection Type Unknown Urine Color Yellow Urine Clarity Clear Urine pH 5.5 Urine Specific [place] 1.025 Urine Protein Negative mg/dL (NEG-TRACE) Urine Glucose (UA) Negative mg/dL (NEG) Urine Ketones (Stick) Negative mg/dL (NEG) Urine Blood Negative (NEG) Urine Nitrite Negative (NEG) Urine Bilirubin Negative (NEG) Urine Urobilinogen Dipstick 0.2 mg/dL (0.2 mg/dL) Urine Leukocyte Esterase Negative (NEG) Urine RBC 1-2 /HPF (0-2) Urine WBC 1-4 /HPF (0-4) Urine Squamous Epithelial Cells Few /LPF Urine Bacteria 0 /HPF (0-FEW) Urine Mucus Mod /LPF Urine Opiates Screen Neg (NEG) Urine Methadone Screen Neg (NEG) Urine Barbiturates Neg (NEG) Urine Phencyclidine Screen Neg (NEG) Urine Amphetamine/Methamphetamine Pos (NEG) Urine Benzodiazepines Screen Pos (NEG) Urine Cocaine Screen Neg (NEG) Urine Cannabinoids Screen Neg (NEG) Urine Ethyl Alcohol Neg (NEG) Laboratory Tests Test 10/07/17 14:24 Urine Collection Type Unknown Urine Color Yellow Urine Clarity Clear Urine pH 5.5 Urine Specific [place] 1.025 Urine Protein Negative mg/dL (NEG-TRACE) Urine Glucose (UA) Negative mg/dL (NEG) Urine Ketones (Stick) Negative mg/dL (NEG) Urine Blood Negative (NEG) Urine Nitrite Negative (NEG) Urine Bilirubin Negative (NEG) Urine Urobilinogen Dipstick 0.2 mg/dL (0.2 mg/dL) Urine Leukocyte Esterase Negative (NEG) Urine RBC 1-2 /HPF (0-2) Urine WBC 1-4 /HPF (0-4) Urine Squamous Epithelial Cells Few /LPF Urine Bacteria 0 /HPF (0-FEW) Urine Mucus Mod /LPF Urine Opiates Screen Neg (NEG) Urine Methadone Screen Neg (NEG) Urine Barbiturates Neg (NEG) Urine Phencyclidine Screen Neg (NEG) Urine Amphetamine/Methamphetamine Pos (NEG) Urine Benzodiazepines Screen Pos (NEG) Urine Cocaine Screen Neg (NEG) Urine Cannabinoids Screen Neg (NEG) Urine Ethyl Alcohol Neg (NEG) Allergies Allergies Coded Allergies Type Severity Reaction Last Updated Verified haloperidol Allergy Severe "IT LOCKS ME UP" 10/07/17 Yes olanzapine Allergy Severe "IT CAUSES RLS" 10/07/17 Yes tramadol Allergy Severe "TRIGGERS SEIZURES" 10/07/17 Yes Disposition/Orders: Other (left ama) Patient Instructions d/c planning 38 min LUCRETIA PALMA MD Oct 08, 2017 14:12
== END 2017-10-08 11:31 | disposition left against medical advice (07) | DRG 894 ==
LOC: ER 13:25 → ED HOLD 18:14 → 6 SOUTH 23:28
PROVIDERS: ADMIT Family Medicine; ATTEND Family Medicine
DX: F15.10 Other stimulant abuse, uncomplicated (principal); G92 Toxic encephalopathy; F41.9 Anxiety disorder, unspecified; Z53.21 Procedure and treatment not carried out due to patient leaving prior to being seen by health care provider; F19.10 Other psychoactive substance abuse, uncomplicated; R45.850 Homicidal ideations; Z88.8 Allergy status to other drugs, medicaments and biological substances; Z81.1 Family history of alcohol abuse and dependence; Z83.42 Family history of familial hypercholesterolemia
CPT/HCPCS: 36415; 80048; 80076; 80307; 81001; 83735; 85025; 96361; 96372; 96374; G0480; J1650; J2060; J3486; J7030; 99285-25; G0479